=== PATIENT | male | born 1965 | race Caucasian/White ===

== ENCOUNTER 2023-03-22 09:18 | Outpatient (OUT) | payer BC, MEDICARE, SELFPAY ==
[2023-03-22 11:12] LABS: Alanine Aminotransferase 48 U/L (16-63); Albumin Globulin Ratio 1.2; Albumin Level 4.3 g/dL (3.4-5.0); Alkaline Phosphatase 112 U/L (46-116); Anion Gap 12.7; Aspartate Amino Transferase 37 U/L (15-37); BUN Creatinine Ratio 17.6; Bilirubin Total 0.9 mg/dL (0.2-1.0); Calcium 9.2 mg/dL (8.5-10.1); Carbon Dioxide 27.7 mmol/L (21.0-32.0); Chloride 100 mmol/L (98-107); Chol HDL Ratio 3.7; Cholesterol 104 mg/dL (<=200); Estimated Average Glucose 235 mg/dL; Estimated GFR (African America >60 (>=60); Estimated GFR (Non-African Ame >60 (>=60); Globulin 3.7 g/dL; Glucose 272 mg/dL (74-106); Glycohemoglobin A1C 9.8 % (4.5-6.2); HDL Cholesterol 28 mg/dL (40-60); Potassium 4.4 mmol/L (3.5-5.1); Sodium 136 mmol/L (136-145); Thyroid Stimulating Hormone 2.757 uIU/mL (0.358-3.740); Triglycerides 185 mg/dL (<=150)
== END 2023-03-22 09:19 | disposition home or self-care (01) ==
PROVIDERS: PCP Family Medicine; Visit Provider Family Medicine
DX: E11.9 Type 2 diabetes mellitus without complications (principal)
CPT/HCPCS: 36415; 80053; 80061; 83036; 84443

== ENCOUNTER 2023-08-28 13:42 | Outpatient (OUT) | payer BC, MEDICARE, SELFPAY ==
[2023-08-28 15:10] LABS: Estimated Average Glucose 214 mg/dL; Glycohemoglobin A1C 9.1 % (4.5-6.2)
== END 2023-08-28 13:43 | disposition home or self-care (01) ==
LOC: LAB 13:43
PROVIDERS: PCP Family Medicine; Visit Provider Family Medicine
DX: E11.9 Type 2 diabetes mellitus without complications (principal)
CPT/HCPCS: 36415; 83036

== ENCOUNTER 2023-12-11 09:19 | Outpatient (OUT) | payer BC, MEDICARE, SELFPAY ==
[2023-12-11 09:53] LABS: Basophils Percent Auto 0.4 % (0.2-2.0); Eosinophils Absolute Auto 0.2 10^3/uL (0.0-0.7); Eosinophils Percent Auto 3.4 % (0.9-7.0); Hematocrit 39.8 % (42.0-54.0); Hemoglobin 13.4 g/dL (14.0-18.0); Immature Granulocytes Abs Auto 0.01 10^3/uL (0.00-0.03); Immature Granulocytes Pct Auto 0.1 % (0.0-0.5); Lymphocytes Absolute Auto 1.7 10^3/uL (1.2-3.8); Lymphocytes Percent Auto 24.9 % (20.5-60.0); Mean Corpuscular HGB Conc 33.7 g/dL (29.9-35.2); Mean Corpuscular Hemoglobin 29.9 pg (25.9-34.0); Mean Corpuscular Volume 88.8 fL (80.0-94.0); Mean Platelet Volume 9.5 fL (9.5-13.5); Monocytes Absolute Auto 0.7 10^3/uL (0.3-0.8); Neutrophils Absolute Auto 4.1 10^3/uL (1.4-6.5); Neutrophils Percent Auto 61.2 % (43.0-75.0); Platelet Count 171 10^3/uL (150-450); Red Blood Count 4.48 10^6/uL (4.70-6.10); Red Cell Distribution Width 11.9 % (11.0-15.0); White Blood Count 6.7 10^3/uL (4.0-11.0)
[2023-12-11 10:43] LABS: Estimated Average Glucose 206 mg/dL; Glycohemoglobin A1C 8.8 % (4.5-6.2)
[2023-12-11 11:13] LABS: Alanine Aminotransferase 42 U/L (16-63); Albumin Globulin Ratio 0.9; Albumin Level 3.8 g/dL (3.4-5.0); Alkaline Phosphatase 105 U/L (46-116); Anion Gap 13.1; Aspartate Amino Transferase 30 U/L (15-37); BUN Creatinine Ratio 16.9; Calcium 9.3 mg/dL (8.5-10.1); Carbon Dioxide 26.9 mmol/L (21.0-32.0); Chloride 100 mmol/L (98-107); Estimated GFR (African America >60 (>=60); Estimated GFR (Non-African Ame >60 (>=60); Globulin 4.1 g/dL; Glucose 202 mg/dL (74-106); Sodium 136 mmol/L (136-145); TSH W/ REFLEX FT4 3.757 uIU/mL (0.358-3.740); Total Protein 7.9 g/dL (6.4-8.2)
[2023-12-11 13:22] LABS: Free T4 0.82 ng/dL (0.76-1.46)
== END 2023-12-11 09:20 | disposition home or self-care (01) ==
LOC: LAB 09:22
PROVIDERS: PCP Family Medicine; Visit Provider Family Medicine
DX: E78.5 Hyperlipidemia, unspecified (principal); E11.9 Type 2 diabetes mellitus without complications
CPT/HCPCS: 36415; 80053; 83036; 84439; 84443; 85025

== ENCOUNTER 2024-03-24 09:47 | Outpatient (OUT) | payer BC, MEDICARE, SELFPAY ==
--- NOTE | 2024-03-24 09:58 | XR_ITS ---
The [address] [address] Patient Name: FRIDA NICOLE MRN: [id number] date: 1965 Sex: M Assigned Patient Location: [facility] Current Patient Location: Accession/Order Number: [id number] Exam Date: 03/24/2024 10:00 Report Date: 03/26/2024 04:40 At the request of: SHONA RAHMAN Procedure: XR cervical spine 2-3V EXAMINATION: XR cervical spine 2-3V HISTORY: Neck Pain M54.2 COMPARISON: No relevant comparison available. FINDINGS: BONES: No fracture spondylolisthesis. Mild degenerative facet arthropathy. DISC SPACES: Multilevel mild narrowing. Moderate-marked narrowing C5-C6 with large posterior disc osteophyte complex. Moderate narrowing C6-C7. PARASPINOUS: Negative. No paraspinous abnormality is seen. OTHER: Negative. XR/XR cervical spine 2-3V IMPRESSION: 1. Multilevel degenerative changes, marked at C5-C6, likely resulting in central canal and foraminal stenosis. Electronically authenticated by: STEPHAN DOMNIGUEZ Date: 03/26/2024 04:40
--- OUTSIDE RECORDS SUMMARY | 2024-03-24 10:10 | XMS_ITS | CCD ---
Author Organization [facility] Care Team Providers Care Roller Picker Name Role Phone VERONICA UGARTE Referring Unavailable ELKAMBERGY, HUSSAM Primary Care Unavailable MISCDR CARLSON Primary Care Unavailable SHAMMO, JUDITH Attending Unavailable SHAMMO, JUDITH Consulting Unavailable SHAMMO, JUDITH Admitting Unavailable FÁTIMA FLORES Attending Unavailable SWETHA BLOOM Referring Unavailable SWETHA BLOOM Primary Care Unavailable Problems Active Problems Problem Classification Problem Date Documented Date Episodic/Chronic Coronary atherosclerosis and other heart disease (2 sources) Atherosclerotic heart disease of [place] coronary artery with other forms of angina pectoris; Translations: [Ischemic cardiomyopathy] Onset: 12-19-2018 Chronic Coronary atherosclerosis and other heart disease (1 source) Coronary angioplasty status; Translations: [Coronary angioplasty status] Onset: 12-19-2018 Episodic Other screening for suspected conditions (not mental disorders or infectious disease) (1 source) Encounter for screening for malignant neoplasm of colon; Translations: [Encounter for screening for malignant neoplasm of colon] Onset: 02-06-2024 Episodic Unclassified (3 sources) CONTACT W/AND (SUSP) EXPOS COVID-19; Translations: [CONTACT W/AND (SUSP) EXPOS COVID-19] Onset: 10-22-2022 Unclassified (1 source) Colon Cancer Screening Onset: 02-06-2024 Viral infection (1 source) Other viral agents as the cause of diseases classified elsewhere; Translations: [OTH VIRAL AGENTS CAUS DZ CLASS ELSW] Onset: 10-22-2022 Episodic Past or Other Problems Problem Classification Problem Date Documented Da te Episodic/Chronic Unclassified (1 source) CONTACT W/AND (SUSP) EXPOS COVID-19; Translations: [CONTACT W/AND (SUSP) EXPOS COVID-19] Onset: 10-12-2022 Results Test Name Value Interpretation Reference Range Facil ity RESPIRATORY PANEL PLUSon Adenovirus Not detected Normal NOT DETECTED [facility] Comment on above: Performed By: #### R SPLUS #### [facility] [address] [place] [address] Dr. Regino Michelle. Parapertusis Not detected Normal NOT DETECTED The [facility] Comment on above: Performed By: #### R SPLUS #### [facility] [address] [place] [address] Dr. Regino Michelle. Pertussis Not detected Normal NOT DETECTED The [facility] Comment on above: Performed By: #### R SPLUS #### [facility] [address] [place] [address] Dr. Regino Catherine Chlamydia Pneumoniae Not detected Normal NOT DETECTED [facility] Comment on above: Performed By: #### R SPLUS #### [facility] [address] [place] [address] Dr. Regino Catherine Coronavirus 229E Not detected Normal NOT DETECTED [facility] Comment on above: Performed By: #### R SPLUS #### [facility] [address] [place] [address] Dr. Regino Catherine Coronavirus HKU1 Detected Abnormal NOT DETECTED The [facility] Comment on above: Performed By: #### R SPLUS #### [facility] [address] [place] [address] Dr. Regino Catherine Coronavirus NL63 Not detected Normal NOT DETECTED The [facility] Comment on above: Performed By: #### R SPLUS #### [facility] [address] [place] [address] Dr. Regino Catherine Coronavirus OC43 Not detected Normal NOT DETECTED [facility] Comment on above: Performed By: #### R SPLUS #### [facility] [address] [place] [address] Dr. Regino Catherine Influenza A H1 Not detected Normal NOT DETECTED The [facility] Comment on above: Performed By: #### R SPLUS #### [facility] [address] [place] [address] Dr. Regino Catherine Influenza A H1 2009 Not detected Normal NOT DETECTED [facility] Comment on above: Performed By: #### R SPLUS #### [facility] [address] [place], [place] [id number] Dr. Regino Catherine Influenza A H3 Not detected Normal NOT DETECTED The [facility] Comment on above: Performed By: #### R SPLUS #### [facility] [address] [place] [address] Dr. Regino Catherine Influenza B Not detected Normal NOT DETECTED [facility] Comment on above: Performed By: #### R SPLUS #### [facility] [address] [place] [address] Dr. Regino Catherine Metapneumovirus Not detected Normal NOT DETECTED The [facility] Comment on above: Performed By: #### R SPLUS #### [facility] [address] [place] [address] Dr. Regino Catherine Mycoplas. Pneumoniae Not detected Normal NOT DETECTED The [facility] Comment on above: Performed By: #### R SPLUS #### [facility] [address] [place] [address] Dr. Regino Catherine Parainfluenza 1 Not detected Normal NOT DETECTED The [facility] Comment on above: Performed By: #### R SPLUS #### [facility] [address] [place] [address] Dr. Regino Catherine Parainfluenza 2 Not detected Normal NOT DETECTED The [facility] Comment on above: Performed By: #### R SPLUS #### [facility] [address] [place] [address] Dr. Regino Catherine Parainfluenza 3 Not detected Normal NOT DETECTED [facility] Comment on above: Performed By: #### R SPLUS #### [facility] [address] [place] [address] Dr. Regino Catherine Parainfluenza 4 Not detected Normal NOT DETECTED [facility] Comment on above: Performed By: #### R SPLUS #### [facility] [address] [place] [address] Dr. Regino Catherine Rhino/Enterovirus Not detected Normal NOT DETECTED The [facility] Comment on above: Performed By: #### R SPLUS #### [facility] [address] [place] [address] Dr. Regino Catherine RP2 Header 1 RESPIRATORY PANEL: VIRUSES Normal The [facility] Comment on above: Performed By: #### R SPLUS #### [facility] [address] [place] [address] Dr. Regino Catherine RP2 Header 2 RESPIRATORY PANEL: BACTERIA Normal [facility] Comment on above: Performed By: #### R SPLUS #### [facility] [address] [place] [address] Dr. Regino Catherine RSV Not detected Normal NOT DETECTED [facility] Comment on above: Performed By: #### R SPLUS #### [facility] [address] [address] [address] Regino Catherine SARS-CoV-2 (COVID-19) RNA DUC+probe Ql (Unsp spec) Not detected Normal NOT DETECTED [facility] Comment on above: Performed By: #### R SPLUS #### [facility] [address] [place] [address] Dr. Regino Catherine Platelet Counton 12-19-2018 Platelets #/vol (Bld) 177 10*3/uL Normal 138-453 [facility] Comment on above: Performed By: #### P LT #### [facility] [address] [place], [place] [address] [facility] Cardiovascular: Amador Casiano MD Encounters Encounter Date Encounter Type Care Provider Facility Start: 02-06-2024 End: 02-06-2024 ambulatory [facility] Natalee FLORES [facility] Start: 10-12-2022 End: 10-12-[address] DOCTOR POSTC Facility:[facility]1 Start: 12-19-2018 End: 12-20-2018 Patient encounter procedure TARIF A SHANEL [facility] Procedures Date Procedure Procedure Detail Performing Clinician Start: 12-20-2018 DAILY WEIGHTS TARIF ELIJAH AAN Start: 12-20-2018 INTAKE AND OUTPUT TARIF SHANEL Start: 12-20-2018 DIET NPO, SPECIFIED TIME TARIF SHANEL Start: 12-19-2018 Ecg routine ecg w/le ast 12 lds w/i&r TARIF SHANEL Start: 12-19-2018 BEDREST TARIF NILSON AN Start: 12-19-2018 FULL CODE VERONICA ROCHA Start: 12-19-2018 INITIATE OXYGEN THER APY PROTOCOL VERONICA UGARTE Start: 12-19-2018 INTAKE AND OUTPUT VERONICA UGARTE Start: 12-19-2018 IP CONSULT TO SOCIAL WORK VERONICA UGARTE Start: 12-19-2018 NEURO/VASCULAR CHECKS T FEDERICO UGARTE Start: 12-19-2018 NURSING COMMUNICATION T FEDERICO UGARTE Start: 12-19-2018 PUNCTURE SITE CARE JOCELYNE UGARTE Start: 12-19-2018 TELEMETRY MONITORING TA NEGAR UGARTE Start: 12-19-2018 TOBACCO CESSATION EDUCATION VERONICA UGARTE Start: 12-19-2018 VITAL SIGNS VERONICA ROCHA Start: 12-19-2018 SQUAD LEADER REPORT VERONICA RICHARDSON Start: 12-19-2018 DISCHARGE PATIENT VERONICA UGARTE Start: 12-19-2018 ACTIVATED CLOTTING TIME VERONICA UGARTE Start: 12-19-2018 R & l hrt cath w/njx l ventriculog img s&i VERONICA UGARTE Start: 12-19-2018 Blood count platelet automated VERONICA UGARTE Start: 12-19-2018 Blood count hemoglobin VERONICA UGARTE Start: 12-19-2018 Chloride other source T FEDERICO UGARTE Start: 12-19-2018 CREATININE W/GFR POI NT OF CARE VERONICA UGARTE Start: 12-19-2018 Gluc bld gluc mntr d ev cleared fda spec home use VERONICA UGARTE Start: 12-19-2018 Potassium serum plas ma/whole blood VERONICA UGARTE Start: 12-19-2018 Sodium serum plasma or whole blood VERONICA UGARTE Start: 12-19-2018 INITIATE OXYGEN THER APY PROTOCOL VERONICA UGARTE Start: 12-19-2018 POC CHEMISTRY (NA,K,ICA,GLU,CALC HCT/HGB,LACTATE,CREA,CL) VERONICA UGARTE Start: 12-19-2018 VERIFY INFORMED CONSENT VERONICA UGARTE Payers Date Payer Category Payer Medicare [id number] 1965 Unknown [id number] 1965 Unknown [id number] 1965 Unknown [id number] 1957 Medicare [id number] 1957 Unknown [id number] Summary Purpose Family History No Family History Records FoundNo Family History Records FoundNo Family History Records Found Advance Directives No Advanced Directives Records FoundNo Advanced Directives Records FoundNo Advanced Directives Records Found Additional Source Comments (unrecognized sect ion and content) No Status Records FoundNo Status Records FoundNo Status Records Found INFORMATION SOURCE (unrecogn ized section and content) DATE CREATED AUTHOR 12/23/2018 [facility] DATE CREATED AUTHOR AUTHOR'S ORGANIZ ATION 11/13/2022 [facility] DATE CREATED AUTHOR AUTHOR'S ORGANIZ ATION 02/07/2024 [facility] FOR RECORDS PERTAINING TO PATIENTS WHO ARE OR HAVE BEEN ENROLLED IN A CHEMICAL DEPENDENCY/SUBSTANCEABUSE PROGRAM, SOME INFORMATION MAY BE OMITTED. This clinical summary was aggregated from multiple sources. Caution should be exercised in using it in the provision of clinical care. This summary normalizes information from multiple sources, and as a consequence, information in this document may materially change the coding, format and clinical context of patient data. In addition, data may be omitted in some cases. CLINICAL DECISIONS SHOULD BE BASED ON THE PRIMARY CLINICAL RECORDS. [facility] [employer] [facility]. provides no warranty or guarantee of the accuracy or completeness of information in this document.
== END 2024-03-24 09:48 | disposition home or self-care (01) ==
LOC: RAD 09:51
PROVIDERS: PCP Family Medicine; Visit Provider Nurse Practitioner
DX: M54.2 Cervicalgia (principal)
CPT/HCPCS: 72040

== ENCOUNTER 2025-02-03 10:42 | Outpatient (OUT) | payer BC, MEDICARE, SELFPAY ==
[2025-02-03 11:08] LABS: Hematocrit 38.5 % (42.0-54.0); Mean Corpuscular HGB Conc 36.4 g/dL (29.9-35.2); Mean Corpuscular Hemoglobin 31.4 pg (25.9-34.0); Mean Corpuscular Volume 86.3 fL (80.0-94.0); Mean Platelet Volume 9.4 fL (9.5-13.5); Platelet Count 187 10^3/uL (150-450); Red Blood Count 4.46 10^6/uL (4.70-6.10); Red Cell Distribution Width 11.8 % (11.0-15.0)
[2025-02-03 11:26] LABS: Alanine Aminotransferase 44 U/L (16-63); Albumin Globulin Ratio 1.1; Alkaline Phosphatase 107 U/L (46-116); Anion Gap 13.7; Aspartate Amino Transferase 26 U/L (15-37); BUN Creatinine Ratio 21.2; Bilirubin Total 0.8 mg/dL (0.2-1.0); Calcium 9.2 mg/dL (8.5-10.1); Carbon Dioxide 27.5 mmol/L (21.0-32.0); Chloride 100 mmol/L (98-107); Chol HDL Ratio 3.2; Cholesterol 104 mg/dL (<=200); Estimated GFR (African America >60 (>=60 mL/min/1.73m^2); Estimated GFR (Non-African Ame >60 (>=60 mL/min/1.73m^2); Globulin 3.6 g/dL; Glucose 248 mg/dL (74-106); HDL Cholesterol 32 mg/dL (40-60); Potassium 4.2 mmol/L (3.5-5.1); Sodium 137 mmol/L (136-145); Total Protein 7.6 g/dL (6.4-8.2); Triglycerides 129 mg/dL (<=150); VLDL CHOLESTEROL 25.8 mg/dL
== END 2025-02-03 10:43 | disposition home or self-care (01) ==
LOC: LAB 10:47
PROVIDERS: PCP Nurse Practitioner; Visit Provider Nurse Practitioner
DX: E11.9 Type 2 diabetes mellitus without complications (principal)
CPT/HCPCS: 36415; 80053; 80061; 85027

== ENCOUNTER 2025-07-26 08:36 | Outpatient (OUT) | payer BC, MEDICARE, SELFPAY ==
--- OUTSIDE RECORDS SUMMARY | 2024-06-22 05:00 | XMS_ITS ---
Author Organization [facility] vices Address [address] [place], [place] [id number] Care Team Providers Care Can Reforming Machine Operator Name Role Phone Joann Slaughter Primary Care Provider [phone] [phone] REASON FOR VISIT 3 mo DM and HLD Social History Sex Assigned At : Social History Observation Description Sex Assigned At Male Encounters Encounter Location Date Provider Diagnosis [place] [address] [place] [phone] 06/22 Shelly Ward Plan Of Treatment Next Appt Details Provider Name:Joann kaye, 10/25/2025 08:00:00 AM, [address] [place], [place], [phone], Progress Notes * Grant NICOLE IIDOB:[birth year] (59 yo M)Acc No.[id number]:06/22/2024 Medical Note Patient: Miguel Angel Grant hunt II :?Shelly WardDOB:1965???Age:58 Y???Sex:Male Date:4Phone:[phone]:[address] [place] [phone]:Joann Slaughter Subjective: * Chief Complaints: * 3 mo DM and HLD * Electronic signature of VERN Fitzgerald on 07/26/2025 at 08:41 AM ESTSign off status: Pending * Provider: Bradford Ward Date: 1 Generated for Printing/Faxing/eTransmitting on:?07/26/2025 08:41 AM EST
--- OUTSIDE RECORDS SUMMARY | 2025-07-20 03:45 | XMS_ITS ---
Author Organization [facility] vices Address [address] [place], [place] [id number] Care Team Providers Care Certified Caregiver Name Role Phone Joann Slaughter Primary Care Provider REASON FOR VISIT 3m htn, dm Social History Sex Assigned At : Social History Observation Description Sex Assigned At Male Encounters Encounter Location Date Provider Diagnosis East [address] [place] [phone] 07/20/2025 Joann Slaughter Plan Of Treatment Next Appt Details Provider Name:Joann kaye, 10/25/2025 08:00:00 AM, [address] [place], [place], [phone], Progress Notes * Grant NICOLE IIDOB:[birth year] (59 yo M)Acc No.[id number]:07/20/2025 Medical Note Patient: Miguel Angel Grant hunt II :?Joann Slaughter APRN, FNP-CDOB:1965???Age: 59 Y???Sex:MaleDate:07/20/2025Phone:[phone]:[address] [place] [phone] Subjective: * Chief Complaints: * 3 m htn, dm Billing Information: * Procedure Codes: * Electronic signature of MATTHEW Lugo on 07/26/2025 at 08:40 AM EST Sign off status: Pending * Provider: Natalee Slaughter APRN, FNP-Paul Date: 09/19/2024 Generated for Printing/Faxing/eTransmitting on:?07/26/2025 08:40 AM EST
--- OUTSIDE RECORDS SUMMARY | 2025-07-26 02:15 | XMS_ITS ---
Author Organization Formerly [facility], [facility] vices Address [address] [place], [place] [id number] Care Team Providers Care Print Room Worker Name Role Phone Kasandra Joann Primary Care Provider Allergies No Known Allergies Results Component Value Reference Range Notes POCT A1C Reviewed date:07/26/2025 07:28:28 AM Interpretation: Performing Lab: Notes/Report: Result 5.5 0-5.6 % REASON FOR VISIT 3m HTN/DM Medications Medication SIG (Take, Route, Frequency, Duration) Notes Start Date End Date Status FLUoxetine HCl 20 MG Capsule 1 capsule Orally On ce a day; Duration: 90 days ActiveClopidogrel Bisulfate 75 MG Tablet1 tablet Orally Once a day; Duration: 90 daysActiveCarvedilol 25 MG Tablet1 tablet with food Orally Twice a day; Duration: 90 daysActiveDigoxin 125 mcg TabletTAKE ONE TABLET BY MOUTH DAILY Orally Once a day; Duration: 90 daysActiveamLODIPine Besylate 5 MG Tablet1 tablet Orally Once a day; Duration: 90 daysActiveRosuvastatin Calcium 20 MG TabletTAKE 1 TABLET BY MOUTH EVERY NIGHT AT BEDTIMEActiveOzempic (0.25 or 0.5 MG/DOSE) 2 MG/3ML Solution Pen-injector0.5mg Subcutaneous weekly; Duration: 90 days5ActiveLisinopril 20 MG TabletTAKE 1 TABLET BY MOUTH DAILY Orally Once a day; Duration: 90 daysActivetiZANidine HCl 4 MG Tablet1 tablet at bedtime as needed Orally nightly; Duration: 30 daysActiveEzetimibe 10 MG Tablet1 tablet Oral Once a dayActiveNitroglycerin 0.4 MG Tablet Sublingualas directed Sublingual as neededActiveAspirin 81 81 MG Tablet Chewable1 tablet Orally Once a dayActiveColcrys 0.6 MG Tablet2 tabs Orally as neededActivemetFORMIN HCl 1000 MG TabletTAKE 1 TABLET BY MOUTH 2 TIMES A DAY WITH A MEAL Orally Once a day; Duration: 90 daysActiveGabapentin 400 MG Capsule2 capsule Oral TWICE DAILY; Duration: 90 days1 in the afternoon and 2 in the evening (3 a day)Active Allopurinol 300 MG TabletTAKE 1 TABLET BY MOUTH DAILY Orally Once a day; Duration: 90 daysActive Social History Sex Assigned At : Social History Observation Description Sex Assigned At Male Social History Drugs/Alcohol/Caffeine:Social InfoQuestionAnswerNotesCAGE-AID Questionnaire (2018 Edition)Have you ever felt that you ought to cut down on your drinking or drug use?NoHave people annoyed you by criticizing your drinking or drug use?No Have you ever felt bad or guilty about your drinking or drug use?NoHave you ever had a drink or used drugs first thing in the morning to steady your nerves or to get rid of a hangover?NoCAGE-AID Wpvuc3FpzqmwqcpoxenmTsajrfuc Vital Signs Temperature 98.2 degrees Fahrenheit 07/26/20 25 Blood pressure systolic 133 mm Hg 07/26/20 25 Blood pressure diastolic 85 mm Hg 025 Heart Rate 91 /min 07/26/2025 Respiratory Rate 16 /min 07/26/2025 Height 66.00 in 07/26/2025 Weight 174.4 lbs 07/26/2025 BMI 28.15 kg/m2 07/26/2025 Oximetry 97 % 07/26/2025 Height-cm 167.64 cm 07/26/2025 Weight-kg 79.11 kg 07/26/2025 .Daisy Rice 07:22:12 AM EST > Encounters Encounter Location Date Provider Diagnosis [address] [id number] 07/26/2025 Joann Slaughter Type 2 diabetes me llitus without complication, without long-term current use of insulin E11.9 ; HTN (hypertension), benign I10 ; Screening for thyroid disorder Z13.29 ; Medication refill Z76.0 and Screening for colorectal cancer Z12.11 Assessments Encounter Date Diagnosis (ICD Code) Assessment Notes Treatment Notes Treatment Clinical Notes Section Notes 07/26/2025 Type 2 diabetes albino itus without complication, without long-term current use of insulin (ICD-10 - E11.9) Diabetes Stable. Attempt to wean metformin. Start to take 1000mg in the morning then only take 500mg at night Encouraged healthy diet and exercise if able. Recommendations made to continue monitoring home blood sugars if not diet-controlled F/U 3 months & PRN 07/26/2025HTN (hypertension), benign (ICD-10 - I10) Hypertension is stable at this time. Continue current medications. Encouraged healthy diet and exercise. F/U 3 months & PRN 07/26/2025Screening for thyroid disorder (ICD-10 - Z13.29)07/26/2025Medication refill (ICD-10 - Z76.0)07/26/2025Screening for colorectal cancer (ICD-10 - Z12.11) Plan Of Treatment Medication Medication Name Sig Start Date Stop Date Notes Clopidogrel Bisulfate 75 MG Tablet 1 tab let Orally Once a day; Duration: 90 days Carvedilol 25 MG Tablet1 tablet with food Orally Twice a day; Duration: 90 days amLODIPine Besylate 5 MG Tablet1 tablet Orally Once a day; Duration: 90 days tiZANidine HCl 4 MG Tablet1 tablet at bedtime as needed Orally nightly; Duration: 30 daysTreatment Notes Assessment Notes Type 2 diabetes mellitus wit hout complication, without long-term current use of insulin Diabetes Stable. Attempt to wean metformin. Start to take 1000mg in the morning then only take 500mg at night Encouraged healthy diet and exercise if able. Recommendations made to continue monitoring home blood sugars if not diet-controlled F/U 3 months & PRN HTN (hypertension), benign Hypertension is stable at this time. Continue current medications. Encouraged healthy diet and exercise. F/U 3 months & PRN Pending Test Test Name Order Date Cologuard 07/26/2025 LIPID PANEL WITH REFLEX TO DIRECT LDL TSH + FREE T4 PROFILE 07/26/2025 COMPREHENSIVE METABOLIC PANEL WITH GFR 1 09/26/2024 Next Appt Details Follow Up: 3 Months, Reason: dm Provider Name:Joann kaye, 10/25/2025 08:00:00 AM, [address], [place], [place], [phone], History and Physical Notes * Examination CategorySub-CategoryDetailNotesCategory NotesGeneral Examination General appearance: alert, pleasant, well-nourished and in no acute distress. Head: normocephalic, atraumatic. Eyes: pupils equal, round, reactive to light. Heart: regular rate and rhythm without murmurs, gallops, clicks or rubs. Lungs: clear to auscultation bilaterally, with good air movement and no rales, rhonchi or wheezes. Psych: alert and oriented x 3, cooperative with exam, maintains good eye contact. Skin: No rashes. CQM ExceptionsCurrently taking Aspirin:Aspirin Use:: Yes Progress Notes * Grant NICOLE IIDOB:[birth year] (59 yo M)Acc No.[id number]:07/26/2025 Medical Note Patient: Miguel Angel hunt Grant Amezquita II :?Joann RahmanmanTENA, RN ONCOLOGY-CDOB:1965???Age: 59 Y???Sex:MaleDate:07/26/2025Phone:[phone]:[address] [place] [id number] Subjective: * Chief Complaints: * 3 m HTN/DM * HPI: ???Interim History:?The patient is a 59-year-old male?with a history of hypertension (HTN), here for a follow-up visit. The patient reports no new symptoms. The patient has been taking digoxin, cavedilol, amlodipine, and lisinopril?as prescribed, with adherence to the medication regimen. Recent home blood pressure readings have been controlled. Last visit we tried to decrease lisinopril to 10 but patients BP began to elevate so we resumed 20mg. Pt Denies symptoms of chest pain, shortness of breath, palpitations. Pt has no additional concerns today. . The patient has a history of type 2 diabetes mellitus, here for a follow-up visit. The patient reports no new symptoms. The patient is currently taking metformin and ozempic and has been adherent to the prescribed regimen. Attempted to decrease ozempic to .25mg last visit but patient started to over eat again so the dose was increased. Last A1c was 6.6, which is controlled. The patient does not check blood sugars athome The patient has made some changes to their diet and exercise routine since the last visit. The patient denies significant weight changes. The patient has no new complications, such as retinopathy, neuropathy, kidney issues, etc. Pt last seen eye doctor less than a year and last foot exam was. * ROS: ???Positive and negative as described above in the HPI. * Medical History: Allergic Rhinitis Arrhythmia, prison Carpal Tunnel Syndrome Congestive heart failure COPD Diabetes mellitus, type II, Diverticulosis Gastroesophageal Reflux Disease Gout Hypercholesterolemia Hypertension Ischemic cardiomyopathy Type 2 diabetes mellitus with hyperglycemia, without long-term current use of insulin Medical History Verified? * Surgical History: Defibrillator Implant, COMMENTS: with pacemaker ? lung biopsy ? Cardiac stent-5 ? Tonsillectomy and adenoidectomy ? Surgical History verified.? * Hospitalization/Major Diagno stic Procedure: Denies Past Hospitalization.? Hospitalization Verified.? * Family History: F ather: , CHF, diagnosed with Diabetes. M other: , CHF. P aternal Grand Father: , CHF. P aternal Grand Mother: , CHF. M aternal Grand Father: , CHF. M aternal Grand Mother: , CHF. B rother: alive. S ister: , CHF. 1 brother(s) , 1 sister(s) . . F amily History Verified.. * Social History: ???Drugs/Alcohol/Caffeine:?CAGE-AID Questionnaire (2018 Edition)?Have you ever felt that you ought to cut downon your drinking or drug use??No ?Have people annoyed you by criticizing your drinking or drug use??No ?Have you ever felt bad or guilty about your drinking or drug use??No ?Have you ever had a drink or used drugs firstthing in the morning to steady your nerves or to get rid of a hangover??No ?CAGE-AID Score?0 ?Interpretation?Negative ???Social History Verified. * Medications: T akingFLUoxetine HCl 20 MG Capsule 1 capsule Orally Once a day Digoxin 125 mcg Tablet TAKE ONE TABLET BY MOUTH DAILY Orally Once a day Allopurinol 300 MG Tablet TAKE 1 TABLET BY MOUTH DAILY Orally Once a day metFORMIN HCl 1000 MG Tablet TAKE 1 TABLET BY MOUTH 2 TIMES A DAY WITH A MEAL Orally Once a day Gabapentin 400 MG Capsule 2 capsule Oral TWICE DAILY , Notes to Pharmacist: 1 in the afternoon and 2 in the evening (3 a day)Carvedilol 25 MG Tablet 1 tablet with food Orally Twice a day Nitroglycerin 0.4 MG Tablet Sublingual as directed Sublingual as needed Aspirin 81 81 MG Tablet Chewable 1 tablet Orally Once a day Colcrys 0.6 MG Tablet 2 tabs Orally as needed amLODIPine Besylate 5 MG Tablet TAKE ONE TABLET BY MOUTH EVERY EVENING Clopidogrel Bisulfate 75 MG Tablet TAKE 1 TABLET BY MOUTH DAILY Rosuvastatin Calcium 20 MG Tablet TAKE 1 TABLET BY MOUTH EVERY NIGHT AT BEDTIME Ezetimibe 10 MG Tablet 1 tablet Oral Once a day tiZANidine HCl 4 MG Tablet 1 tablet at bedtime as needed Orally nightly Ozempic (0.25 or 0.5 MG/DOSE) 2 MG/3ML Solution Pen-injector 0.5mg Subcutaneous weekly Lisinopril 20 MG Tablet TAKE 1 TABLET BY MOUTH DAILY Orally Once a day Medication List reviewed and reconciled with the patientTaking FLUoxetine HCl 20 MG Capsule 1 capsule Orally Once a day Taking Digoxin 125 mcg Tablet TAKE ONE TABLET BY MOUTH DAILY Orally Once a day Taking Allopurinol 300 MG Tablet TAKE 1 TABLET BY MOUTH DAILY Orally Once a day Taking metFORMIN HCl 1000 MG Tablet TAKE 1 TABLET BY MOUTH 2 TIMES A DAY WITH A MEAL Orally Once a day Taking Gabapentin 400 MG Capsule 2 capsule Oral TWICE DAILY , Notes to Pharmacist: 1 in the afternoon and 2 in the evening (3 a day)Taking Carvedilol 25 MG Tablet 1 tablet with food Orally Twice a day Taking Nitroglycerin 0.4 MG Tablet Sublingual as directed Sublingual as needed Taking Aspirin 81 81 MG Tablet Chewable 1 tablet Orally Once a day Taking Colcrys 0.6 MG Tablet 2 tabs Orally as needed Taking amLODIPine Besylate 5 MG Tablet TAKE ONE TABLET BY MOUTH EVERY EVENING Taking Clopidogrel Bisulfate 75 MG Tablet TAKE 1 TABLET BY MOUTH DAILY Taking Rosuvastatin Calcium 20 MG Tablet TAKE 1 TABLET BY MOUTH EVERY NIGHT AT BEDTIME Taking Ezetimibe 10 MG Tablet 1 tablet Oral Once a day Taking tiZANidine HCl 4 MG Tablet 1 tablet at bedtime as needed Orally nightly Taking Ozempic (0.25 or 0.5 MG/DOSE) 2 MG/3ML Solution Pen-injector 0.5mg Subcutaneous weekly Taking Lisinopril 20 MG Tablet TAKE 1 TABLET BY MOUTH DAILY Orally Once a day Medication List reviewed and reconciled with the patient * Allergies: N .K.D.AGingeryesAllergies Verified. Objective: * Vitals: T emp:98.2F, Wt:174.4lbs, Ht: 66.00 in, BMI:28.15Index, BP:133/85mm Hg, HR:91/min, RR:16/min, Pain scale:01-10, Oxygen sat %:97%, Wt-k.11 kg, Ht-cm: 167.64 cm, Body Surface Area: 1.92. . MartinezmassimoDaisy mills 07/26/2025 07:22:12 AM EST >. * Examination: ???CQM Exceptions: ?Currently taking Aspirin:? Aspirin Use:?Yes?General Examination: ???General appearance: alert, pleasant, well-nourished and in no acute distress. Head: normocephalic, atraumatic. Eyes: pupils equal, round, reactive to light. Heart: regular rate and rhythm without murmurs, gallops, clicks or rubs. Lungs: clear to auscultation bilaterally, with good air movement and no rales, rhonchi or wheezes. Psych: alert and oriented x 3, cooperative with exam, maintains good eye contact. Skin: No rashes. Assessment: * Assessment: 1.?Type 2 diabetes mellitus without complication, without long-term current use of insulin - E11.9 (Primary)???2.?HTN (hypertension), benign - I10???3.?Scr eening for thyroid disorder - Z13.29???4.?Medication refill - Z76.0??& #160;5.?Screening for colorectal cancer - Z12.11??? Plan: * Treatment: ?LAB: POCT A1C (Collection Date & Time - 07/26/2025 07:26 AM)* ?ValueReference Range?Result5.50-5.6 - % Notes: Diabetes Stable. Attempt to wean metformin. Start to take 1000mg in the morning then only take 500mg at night Encouraged healthy diet and exercise if able. Recommendations made to continue monitoring home blood sugars if not diet-controlled F/U 3 months & PRN? ??2.?HTN (hypertension), benign?LAB: LIPID PANEL WITH REFLEX TO DIRECT LDL ?LAB: COMPREHENSIVE METABOLIC PANEL WITH GFR Notes: Hypertension is stable at this time. Continue current medications. Encouraged healthy diet and exercise. F/U 3 months & PRN???3.?Screening for thyroid disorder?LAB: TSH + FREE T4 PROFILE4.?Medication refill? Refill tiZANidine HCl Tablet, 4 MG, 1 tablet at bedtime as needed, Orally, nightly, 30 days, 30, Refills 3;?Refill amLODIPine Besylate Tablet, 5 MG, 1 tablet, Orally, Once a day, 90 days, 90 Tablet, Refills 1;?Refill Carvedilol Tablet, 25 MG, 1 tablet with food, Orally, Twice a day, 90 days, 180 Tablet, Refills 1.??5.?Screening for colorectal cancer?LAB: Cologuard6.?Others? Refill Clopidogrel Bisulfate Tablet, 75 MG, 1 tablet, Orally, Once a day, 90 days, 90 Tablet, Refills 1.?? * Procedure Codes: 3 044F DM HG A1C < 62942I HTN SYST BP = 130 - 0280274L HTN DIAST BP = 80-2305784 GLYCATED HEMOGLOBIN TEST, Modifiers: QW * Follow Up: 3 Months (Reason: dm) Billing Information: * Visit Code: 56972 Office Visit Est 30-39 minutes. * Procedure Codes: 3044F DM HG A1C < 7. 3075F HTN SYST BP = 130 - 139. 3079F HTN DIAST BP = 80-89. 84785 GLYCATED HEMOGLOBIN TEST. Modifiers: QW * Sign off status: Completed true * Provider: A bigail Slaughter, CHIEF COMPLIANCE OFFICER, RN ONCOLOGY-C Date: 1 09/26/2024 Generated for Printing/Faxing/eTransmitting on:?07/26/2025 08:41 AM EST
--- OUTSIDE RECORDS SUMMARY | 2025-07-26 08:41 | XMS_ITS | Clinical Summary ---
Author Organization [facility] Address [address], [address] [place] [address] Care Team Providers Care Auto Crane Driver Name Role Phone Shayne Linares MD Primary Care Provider Allergies No known active allergies Medications MedicationSigDispense QuantityRefillsLast FilledStart DateEnd DateStatus tiZANidine (ZANAFLEX) 4 MG tablet Take 1 tablet by mouth dailyActive lisinopril (PRINIVIL;ZESTRIL) 20 MG tablet Take 1 tablet by mouth dailyActive gabapentin (NEURONTIN) 400 MG capsule Take 1 capsule by mouth 3 times daily. 4 caps a day 1am 1lunch 2pmActive polyethylene glycol (GLYCOLAX) powder Take 17 g by mouth dailyActive allopurinol (ZYLOPRIM) 300 MG tablet Take 1 tablet by mouth 2 times dailyActive colchicine 0.6 MG tablet Take 1 tablet by mouth 2 times dailyActive nitroGLYCERIN (NITROSTAT) 0.[address] 1 tablet under the tongue every 5 minutes as needed for Chest pain up to max of 3 total doses. If no relief after 1 dose, call 911.Active aspirin 81 MG tablet Take 1 tablet by mouth daily 90 tablet Active naproxen (NAPROSYN) 500 MG tablet Take 1 tablet by mouth 2 times daily as needed for Pain 60 tablet 12/19/2018Active digoxin (LANOXIN) 125 MCG tablet Indications:Ischemic cardiomyopathyTake 1 tablet by mouth daily 90 tablet 5Active clopidogrel (PLAVIX) 75 MG tablet Indications:Ischemic cardiomyopathyTake 1 tablet by mouth daily 90 tablet 5Active carvedilol (COREG) 25 MG tablet Indications:Ischemic cardiomyopathyTake 1 tablet by mouth 2 times daily (with meals) 180 tablet 5Active rosuvastatin (CRESTOR) 20 MG tablet Indications:Ischemic cardiomyopathyTake 1 tablet by mouth nightly 90 tablet 5Active amLODIPine (NORVASC) 5 MG tablet Indications:Ischemic cardiomyopathyTake 1 tablet by mouth daily 90 tablet 5Active ezetimibe (ZETIA) 10 MG tablet Indications:S/P PTCA (percutaneous transluminal coronary angioplasty)Take 1 tablet by mouth daily 90 tablet 5Active Active Problems ProblemNoted DateDiagnosed DateS/P PTCA (percutaneous transluminal coronary angioplasty)12/19/2018Coronary artery disease of [place] artery of [place] heart with stable angina abbrkgar51/26/2019Ischemic kbbygsnuhdrmwk08/26/2019 Social History Tobacco UseTypesPacks/DayYears UsedDateSmoking Tobacco: NeverSmokeless Tobacco: NeverAlcohol UseStandard Drinks/WeekCommentsYes0 (1 standard drink = 0.6 oz pure alcohol)occassionallySex and Gender InformationValueDate RecordedSex Assigned at BirthNot on fileLegal FfiBpuu1211/12/2013 10:59 AM EDTGender IdentityNot on file Sexual OrientationNot on file Last Filed Vital Signs Vital SignReadingTime TakenCommentsBlood Vacchoxc196/8810/27/2024 9:54 AM EST Urvbg761110/27/2024 9:54 AM WVUKkidhpfknru15.7 ??C (98 ??F)12/19/2018 8:31 AM EDT Respiratory Xklw8933 9:54 AM ESTOxygen Gflvnjyhuy27%10/27/2024 9:54 AM ESTInhaled Oxygen Concentration--Qnxnjs27.9 kg (185 lb)10/27/2024 9:54 AM EST Hvrfuf987.6 cm (5' 4 )10/27/2024 9:54 AM ESTBody Mass Index31.7603 9:54 AM EST Plan of Treatment Health MaintenanceDue DateLast EskwBzbbpyjrZrrkda86/25/1978Depression Screen 1979HIV jqoexa2610/20/1982Hepatitis C dozzfu1710/20/1985DTaP/Tdap/Td vaccine (1 - Tdap)1986Hepatitis B vaccine (1 of 3 - 19+ 3-dose series)1986 Diabetes fiksac0110/20/20025994Nkmhgzblyyj32/25/2013Colorectal Cancer Ceknyz0610/20/2012 FIT/FOBT: Average risk2012Fecal-DNA (Cologuard): Average risk2012 Sigmoidoscopy/CT /25/2013Pneumococcal 50+ years Vaccine (1 of 1 - PCV)2017Shingles vaccine (1 of 2)2017Annual Wellness Visit (Medicare)07/22/2023Flu vaccine (#1)51, 09/19/2023, 08/11/2022, Additional history existsCOVID-19 HcskwyiGdveqlkrs72/30/2024, 09/19/2023, 08/11/2022, Additional history existsHepatitis A vaccineAged OutNo longer eligible based on patient's age to complete this topicHib vaccineAged Out No longer eligible based on patient's age to complete this topicMeningococcal (ACWY) vaccineAged OutNo longer eligible based on patient's age to complete this topicMeningococcal B vaccineAged OutNo longer eligible based on patient's age to complete this topicPolio vaccineAged OutNo longer eligible based on patient's age to complete this topic Insurance [address] [place] [phone] Advance Directives * Full Code (Latest Code Status on File) Date ActivatedDate InactivatedComments12/19/2018 10:03 AM12/20/2018 2:41 AM * Full Code Date ActivatedDate InactivatedComments12/19/2018 8:29 AM12/19/2018 10:03 AM * Full Code Date ActivatedDate InactivatedComments11/09/2014 3:29 PM11/09/2014 8:45 PM * Full Code Date ActivatedDate InactivatedComments11/09/2014 12:08 PM11/09/2014 3:29 PM * Full Code Date ActivatedDate InactivatedComments12/16/2013 10:02 AM12/16/2013 3:29 PM Care Teams Team MemberRelationshipSpecialtyStart DateEnd Date Shayne Linares MD [address] [place] [address] PCP - General12/15/13
--- OUTSIDE RECORDS SUMMARY | 2025-07-26 08:41 | XMS_ITS | Clinical Summary ---
Author Organization [employer] tem Address [id number] [address] [place] [address] Care Team Providers Care Orderly Name Role Phone Adonis De León MD Primary Care Provider [phone] Allergies No known active allergies Medications MedicationSigDispense QuantityRefillsLast FilledStart DateEnd DateStatus nitroglycerin (NITROSTAT) 0.[address] 1 tablet (0.4 mg total) under the tongue every 5 (five) minutes as needed. Place 1 tablet under the tongue every 5 minutes as needed for Chest pain up to max of 3 total doses. If no relief after 1 dose, call [phone].Active FLUoxetine (PROzac) 20 mg capsule Take 1 capsule (20 mg total) by mouth in the evening.Active tiZANidine (ZANAFLEX) 4 mg tablet Take 1 tablet (4 mg total) by mouth nightly.Active ezetimibe (ZETIA) 10 mg tablet Take 1 tablet (10 mg total) by mouth in the morning.12/24/2023ctive lisinopriL (PRINIVIL,ZESTRIL) 20 mg tablet Take 1 tablet (20 mg total) by mouth in the morning.Active amLODIPine (NORVASC) 5 mg tablet Take 1 tablet (5 mg total) by mouth nightly.Active digoxin (LANOXIN) 125 mcg tablet Take 1 tablet (125 mcg total) by mouth in the morning.12/24/2023ctive gabapentin (NEURONTIN) 400 mg capsule Take 1 capsule (400 mg total) by mouth in the morning and 1 capsule (400 mg total) at noon and 1 capsule (400 mg total) in the evening and 1 capsule (400 mg total) before bedtime.Active JARDIANCE 10 mg tablet tablet Take 1 tablet (10 mg total) by mouth in the morning.4Active colchicine (COLCRYS) 0.6 mg tablet Take 1 tablet (0.6 mg total) by mouth. Take 1 tablet by mouth 2 times daily Active allopurinoL (ZYLOPRIM) 300 mg tablet Take 1 tablet (300 mg total) by mouth in the morning and 1 tablet (300 mg total) before bedtime.Active rosuvastatin (CRESTOR) 20 mg tablet Take 1 tablet (20 mg total) by mouth nightly.Active clopidogreL (PLAVIX) 75 mg tablet Take 1 tablet (75 mg total) by mouth in the morning.Active carvediloL (COREG) 25 mg tablet Take 1 tablet (25 mg total) by mouth in the morning and 1 tablet (25 mg total) in the evening. Takewith meals.Active aspirin 81 mg Take 1 tablet (81 mg total) by mouth in the morning.Active metFORMIN (GLUCOPHAGE) 1000 mg tablet Take 1 tablet (1,000 mg total) by mouth in the morning and 1 tablet (1,000 mg total) in the evening. Take with meals.Active sod sulf-pot chloride-mag sulf 1.479-0.188- 0.225 gram tablet Indications:Encounter for screening colonoscopyPlease see instructional sheet given by physicians office. 24 tablet 02/06/2024ctive Active Problems No known active problems Family History Medical HistoryRelationNameCommentsDiabetesFatherPhillip BowlinEarly deathFather Grant OrozcoHeart diseaseFatherPhillip BowlinArthritisMotherJanet Ernesto Clotting disorderMotherJanet BowlinHypertensionMotherJanet BowlinRelationName StatusCommentsFatherPhillip BowlinDeceasedMotherJanet BowlinDeceased Social History Tobacco UseTypesPacks/DayYears UsedDateSmoking Tobacco: NeverSmokeless Tobacco: NeverAlcohol UseStandard Drinks/WeekCommentsNot Currently0 (1 standard drink = 0.6 oz pure alcohol)rarelyChildcareAnswerDate NywwzdreJbigobdexPdgxtfy28/12/2019 EmploymentAnswerDate KypoumjuJtyssnerrbSetygqs08/12/2019Hunger ScreeningAnswer Date RecordedWithin the past 12 months we worried whether our food would run out before we got money to buy more.Never True02/06/2024Food Insecurity - Inability Not on file02/06/2024Sex and Gender InformationValueDate RecordedSex Assigned at ZzpnsExap33/06/2024 5:07 PM EDTLegal PmoUwsr1803/31/2015 11:43 AM EDTGender AvmpwhruYwxq00/06/2024 5:07 PM EDTSexual AbkgeeybufeWsz05/06/2024 5:07 PM EDT Last Filed Vital Signs Vital SignReadingTime TakenCommentsBlood Rphgzijr192/85002/06/2024 10:07 AM EDT Wndsl639202/06/2024 10:07 AM EDTTemperature--Respiratory Rate--Oxygen Saturation-- Inhaled Oxygen Concentration--Cvrylh92.8 kg (184 lb 12.8 oz)02/06/2024 10:07 AM WCWRmrfax788 cm (5' 3 )02/06/2024 10:07 AM EDTBody Mass Index32.7402/06/2024 10:07 AM EDT Plan of Treatment Health MaintenanceDue DateLast DoneCommentsDepression Wvznxkszk02/25/1980 DTaP,Tdap and Td Vaccines (1 - Tdap)1986Zoster (Shingles) Vaccine (1 of 2) 2017Adult BMI Dhdglmcgf16Tobacco Onretgctx58/24/2025 02/17/2024OVID-19 Vaccine ( - 2024- season), 08/11/2022, 08/03/2021, Additional history existsInfluenza Xzwvtbw22/01/217494/, 08/11/2022, 07/23/2020, Additional history exists Medical Devices Not on file Insurance Care Teams Team MemberRelationshipSpecialtyStart DateEnd Date Adonis De León MD [facility] - [facility]
--- OUTSIDE RECORDS SUMMARY | 2025-07-26 08:41 | XMS_ITS | CCD ---
Demographics Address [address] [place] [address] Mobile Phone Preferred Language en Marital Status Islam Affiliation Unknown Race White Ethnic Group Not or Lati no Author Organization [facility] Care Team Providers Care Reverse Logistics Analyst Name Role Phone VERONICA UGARTE Referring Unavailable ELFLAKITA MORFIN Primary Care Unavailable DR ROBYN HUI Primary Care Unavailable JUDITH SAM Attending Unavailable JUDITH SAM Consulting Unavailable JUDITH SAM Admitting Unavailable FÁTIMA FLORES Attending Unavailable SWETHA DE LEÓN Referring Unavailable SWETHA DE LEÓN Primary Care Unavailable Swetha De León MD Primary Care Provider Medications Current Medications MedicationDrug Class(es)DatesSig (Normalized)Sig (Original)Allopurinol (2 sources)Xanthine Oxidase InhibitorStart: 88-90-1525Cnfcsyaizek Active MG PO April 21, 2024 12:00amtake 1 tablet by mouth in the morning, then take 1 tablet by mouth at bedtimeallopurinoL (ZYLOPRIM) 300 mg tablet Take 1 tablet (300 mg total) by mouth in the morning and 1 tablet (300 mg total) before bedtime. ActiveamLODIPine 5 mg oral tablet (2 sources)Dihydropyridine Calcium Channel BlockerStart: 46-48-9494yfac 5 mg by mouth once dailyAmlodipine Active 5 MG PO Daily April 21, 2024 12:00amtake 1 tablet by mouth once dailyamLODIPine (NORVASC) 5 mg tablet Take 1 tablet (5 mg total) by mouth nightly. Activeaspirin 81 mg delayed release oral tablet (2 sources)Platelet Aggregation Inhibitor, Nonsteroidal Anti-inflammatory Drug Start: 68-02-2481tutv 81 mg by mouth once dailyAspirin Active 81 MG PO Daily April 21, 2024 12:00amtake 1 tablet by mouth in the morningaspirin 81 mg Take 1 tablet (81 mg total) by mouth in the morning. Activecarvedilol (2 sources)alpha-Adrenergic Ophelia, beta-Adrenergic BlockerStart: 04-21-2024 Carvedilol Active MG PO April 21, 2024 12:00amtake 1 tablet by mouth in the morning, then take 1 tablet by mouth at mealtimecarvediloL (COREG) 25 mg tablet Take 1 tablet (25 mg total) by mouth in the morning and 1 tablet (25 mg total) in the evening. Take with meals. Activeclopidogrel 75 mg oral tablet (2 sources)P2Y12 Platelet InhibitorStart: 67-63-8966ihas 75 mg by mouth once dailyClopidogrel Active 75 MG PO Daily April 21, 2024 12:00amtake 1 tablet by mouth in the morningclopidogreL (PLAVIX) 75 mg tablet Take 1 tablet (75 mg total) by mouth in the morning. Activecolchicine 0.6 mg oral tablet (2 sources)Start: 88-75-7750hpec 1 tablet by mouth once dailyColchicine (Colcrys) 0.6 mg tablet Active 0.6 MG PO Daily April 21, 2024 12:00am colchicine (COLCRYS) 0.6 mg tablet Take 1 tablet (0.6 mg total) by mouth. Take 1 tablet by mouth 2 times daily Activedigoxin 0.125 mg oral tablet (1 source)Cardiac GlycosideStart: 36-24-3830ycwr 1 tablet by mouth in the morningdigoxin (LANOXIN) 125 mcg tablet Take 1 tablet (125 mcg total) by mouth in the morning. 12/24/2023 Activeempagliflozin 10 mg oral tablet (1 source)Sodium-Glucose Cotransporter 2 InhibitorStart: 32-41-6799ccxk 1 tablet by mouth in the morningJARDIANCE 10 mg tablet tablet Take 1 tablet (10 mg total) by mouth in the morning. 01/16/2024 Activeezetimibe 10 mg oral tablet (2 sources)Dietary Cholesterol Absorption InhibitorStart: 21-44-9903ppsa 1 tablet by mouth once dailyEzetimibe (Zetia) 10 mg tablet Active 10 MG PO Daily April 21, 2024 12:00amStart: 06-32-6387uuzo 1 tablet by mouth in the morning ezetimibe (ZETIA) 10 mg tablet Take 1 tablet (10 mg total) by mouth in the morning. 12/24/2023 ActiveFLUoxetine 20 mg oral capsule (1 source)Serotonin Reuptake Inhibitortake 1 capsule by mouth in the evening FLUoxetine (PROzac) 20 mg capsule Take 1 capsule (20 mg total) by mouth in the evening. Activegabapentin 300 mg oral capsule (2 sources)Anti-epileptic AgentStart: 56-14-6395axzc 300 mg by mouth three times dailyGabapentin Active 300 MG PO Three times daily April 21, 2024 12:00am gabapentin (NEURONTIN) 400 mg capsule Take 1 capsule (400 mg total) by mouth in the morning and 1 capsule (400 mg total) at noon and 1 capsule (400 mg total) in the evening and 1 capsule (400 mg total) before bedtime. Activelisinopril 20 mg oral tablet (2 sources)Angiotensin Converting Enzyme InhibitorStart: 77-03-2633genc 20 mg by mouth once dailyLisinopril Active 20 MG PO Daily April 21, 2024 12:00amtake 1 tablet by mouth in the morninglisinopriL (PRINIVIL,ZESTRIL) 20 mg tablet Take 1 tablet (20 mg total) by mouth in the morning. ActivemetFORMIN hydrochloride 500 mg oral tablet (2 sources)BiguanideStart: 91-18-3645iech 1000 mg by mouth twice dailyMetformin Active 1000 MG PO Twice daily April 21, 2024 12:00amtake 1 tablet by mouth in the morning, then take 1 tablet by mouth at mealtimemetFORMIN (GLUCOPHAGE) 1000 mg tablet Take 1 tablet (1,000 mg total) by mouth in the morning and 1 tablet (1,000 mg total) in the evening. Take with meals. Activenitroglycerin 0.3 mg sublingual tablet (2 sources)Nitrate VasodilatorStart: 39-93-6183Smpkycsfrkgfd Active 0.3 MG SUBLINGUAL Q5M April 21, 2024 12:00am do not exceed 3 doses per episode nitroglycerin (NITROSTAT) 0.[address] 1 tablet (0.4 mg total) under the tongue every 5 (five) minutes as needed. Place 1 tablet under the tongue every 5 minutes as needed for Chest pain upto max of 3 total doses. If no relief after 1 dose, call 911. Activepolyethylene glycol 3350 52977 mg powder for oral solution (1 source)Osmotic LaxativeStart: 57-02-1343Qzktsbicymeu Glycol 3350 (Miralax) 17 gram/dose powder Active 17 GM PO Daily April 21, 2024 12:00amrosuvastatin calcium 20 mg oral tablet (2 sources)HMG-CoA Reductase InhibitorStart: 27-16-9473Oqkvwonhsmun Active MG PO April 21, 2024 12:00amtake 1 tablet by mouth once dailyrosuvastatin (CRESTOR) 20 mg tablet Take 1 tablet (20 mg total) by mouth nightly. Activesod sulf-pot chloride-mag sulf 1.479-0.188- 0.225 gram tablet (1 source)Start: 48-37-5359rcy sulf-pot chloride-mag sulf 1.479-0.188- 0.225 gram tablet Indications: Encounter for screening colonoscopy Please see instructional sheet given by physicians office. 24 tablet 02/06/2024 Active tiZANidine 4 mg oral capsule (2 sources)Central alpha-2 Adrenergic AgonistStart: 47-61-0387dcaa 4 mg by mouth once daily at bedtimeTizanidine Active 4 MG PO Daily at bedtime April 21, 2024 12:00amtake 1 tablet by mouth once dailytiZANidine (ZANAFLEX) 4 mg tablet Take 1 tablet (4 mg total) by mouth nightly. Active Problems Active Problems Problem ClassificationProblemDateDocumented DateEpisodic/ChronicCoronary atherosclerosis and other heart disease (2 sources)Atherosclerotic heart disease of [place] coronary artery with other forms of angina pectoris; Translations: [Ischemic cardiomyopathy]Onset: 70-14-1581JlgwpvtYbpycnzx atherosclerosis and other heart disease (1 source)Coronary angioplasty status; Translations: [Coronary angioplasty status]Onset: 00-86-9474QlyqkiwvLrnnp screening for suspected conditions (not mental disorders or infectious disease) (2 sources)Encounter for screening for malignant neoplasm of colon; Translations: [Patient encounter status]Onset: 740201-80-3473Qvwsydcs Unclassified (3 sources)CONTACT W/AND (SUSP) EXPOS COVID-19; Translations: [CONTACT W/AND (SUSP) EXPOS COVID-19]Onset: 13-35-9681Dxctvztbicxn (1 source)Colon Cancer ScreeningOnset: 96-20-5608Ptitz infection (1 source)Other viral agents as the cause of diseases classified elsewhere; Translations: [OTH VIRAL AGENTS CAUS DZ CLASS ELSW]Onset: 64-08-2337Cmerikby Past or Other Problems Problem ClassificationProblemDateDocumented DateEpisodic/ChronicAbdominal pain (1 source)Finding of sensation of abdomen; Translations: [Unspecified abdominal pain]20-74-1297FkczlbffVvoobskikxbu (1 source)CONTACT W/AND (SUSP) EXPOS COVID-19; Translations: [CONTACT W/AND (SUSP) EXPOS COVID-19]Onset: 10-12-2022 Results Test NameValueInterpretationReference RangeFacilityRESPIRATORY PANEL PLUSon 57-32-8620RcclsnnsmnIly detectedNormalNOT DETECTEDThe [facility] HospitalComment on above:Performed By: #### RSPLUS #### [facility] [address] [place] [address] Dr. Regino Hays ParapertusisNot detectedNormalNOT DETECTEDThe [facility] HospitalComment on above:Performed By: #### RSPLUS #### [facility] [address] [place] [address] Dr. Reigno Hays PertussisNot detectedNormalNOT DETECTEDHigh[facility] Comment on above:Performed By: #### RSPLUS #### [facility] [address] [place] [address] Dr. Regino CatherineChlamydia PneumoniaeNot detectedNormalNOT DETECTEDThe [facility] HospitalComment on above:Performed By: #### RSPLUS #### [facility] [address] [place] [address] Dr. Regino Smithronavirus 229ENot detectedNormalNOT DETECTEDThe [facility] HospitalComment on above:Performed By: #### RSPLUS #### [facility] [address] [place] [address] Dr. Regino Crespoavirus PCD4BkbvcbgeCknikreyNYP DETECTEDHigh[facility] Hospital Comment on above:Performed By: #### RSPLUS #### [facility] [address] [place] [address] Dr. Yilan ChangCoronavirus LQ30Aow detectedNormalNOT DETECTEDThe [facility] HospitalComment on above:Performed By: #### RSPLUS #### [facility] [address] [address] [address] Regino Smithronavirus MK07Hmq detectedNormalNOT DETECTEDThe [facility] HospitalComment on above:Performed By: #### RSPLUS #### [facility] [address] [address] [address] Regino Wilder A H1Not detectedNormalNOT DETECTEDThe [facility] Comment on above:Performed By: #### RSPLUS #### [facility] [address] [address] [address] Regino Albright H1 2009Not detectedNormalNOT DETECTEDThe [facility] HospitalComment on above:Performed By: #### RSPLUS #### [facility] [address] [address] [address] Regino Wilder A H3Not detectedNormalNOT DETECTEDHigh[facility] Comment on above:Performed By: #### RSPLUS #### [facility] [address] [address] [address] Regino Wilder BNot detectedNormalNOT DETECTEDHigh[facility] Comment on above:Performed By: #### RSPLUS #### [facility] [address] [address] [address] Regino EarlapneumovirusNot detectedNormalNOT DETECTEDThe [facility] HospitalComment on above:Performed By: #### RSPLUS #### [facility] [address] [address] [address] Regino Bee. PneumoniaeNot detectedNormalNOT DETECTEDThe [facility] HospitalComment on above:Performed By: #### RSPLUS #### [facility] [address] [address] [address] Regino Panchal 1Not detectedNormalNOT DETECTEDThe [facility] HospitalComment on above:Performed By: #### RSPLUS #### [facility] [address] [address] [address] Regino Panchal 2Not detectedNormalNOT DETECTEDThe [facility] HospitalComment on above:Performed By: #### RSPLUS #### [facility] [address] [place] [address] Dr. Regino Panchal 3Not detectedNormalNOT DETECTEDThe [facility] HospitalComment on above:Performed By: #### RSPLUS #### [facility] [address] [place] [address] Dr. Regino Panchal 4Not detectedNormalNOT DETECTEDThe [facility] HospitalComment on above:Performed By: #### RSPLUS #### [facility] [address] [place] [address] Dr. Regino CatherineRhino/EnterovirusNot detectedNormalNOT DETECTEDThe [facility] HospitalComment on above:Performed By: #### RSPLUS #### [facility] [address] [place] [address] Dr. Regino Meek Header 1RESPIRATORY PANEL: VIRUSESDayton Osteopathic Hospital on above:Performed By: #### RSPLUS #### [facility] [address] [place] [address] Dr. Regino Meek Header 2RESPIRATORY PANEL: BACTERIAMary Rutan HospitalComment on above:Performed By: #### RSPLUS #### [facility] [address] [place] [address] Dr. Regino WoodruffVNot detectedNormalNOT DETECTEDThe [facility] HospitalComment on above:Performed By: #### RSPLUS #### [facility] [address] [place] [address] Dr. Regino Rodriges-CoV-2 (COVID-19) RNA DUC+probe Ql (Unsp spec)Not detected NormalNOT DETECTEDThe [facility] HospitalComment on above:Performed By: #### RSPLUS #### [facility] [address] [place] [address] Dr. Regino CatherinePlatelet Counton 72-64-0443Bzpnrutyt #/vol (Bld)177 10*3/uLNormal 138-453[facility] St. Anne HospitalComment on above:Performed By: #### PLT #### [facility] [address] [place], [place] [id number] Certified Alcohol And Drug Counselor: Amador Casiano MD Vital Signs Date TimeVital SignValuePerforming UsineyosdApesmpmy13-07-1815 10:0400Body .02 cmC[facility]08-27-2024 10:0400Body mass index (BMI) [Ratio]33.1 kg/l7YwkjtimenCleveland Clinic [facility]08-27-2024 10:0400Body qsungc15.82 kgC[facility] Clinic [facility]06-13-2024 10:0400Body rdmzon424 cmFátima Sanchezsammy LUTZN-HOME CARE ASSISTANT Work Phone: [facility]06-13-2024 10:07-0400Body mass index (BMI) [Ratio]32.74 kg/i8Tvxbros Flores HELICOPTER REPAIRER-HOME CARE ASSISTANT Work Phone: [facility]06-13-2024 10:070400Body zotmpt65.83 kgFátima Sanchezoll HELICOPTER REPAIRER-HOME CARE ASSISTANT Work Phone: [facility]06-13-2024 10:07-0400Diastolic blood nnoujdpn99 mm[Hg]Fátima Sanchezoll HELICOPTER REPAIRER-HOME CARE ASSISTANT Work Phone: [facility]06-13-2024 10:07-0400Heart rate 71 /minFátima Sanchezoll HELICOPTER REPAIRER-HOME CARE ASSISTANT Work Phone: [facility]06-13-2024 10:07-0400Systolic blood mm[Hg]Fátima Richmond HELICOPTER REPAIRER-HOME CARE ASSISTANT Work Phone: [facility] Encounters Encounter DateEncounter TypeCare ProviderFacilityStart: 04-21-2024 End: 22-01-4167btxksacujuZsjkzjjxiW[facility]oster [facility] Work Phone: Start: 04-21-2024 End: 51-73-3458Sownsgq encounter procedureFirharveys [facility] Work Phone: start: 02-06-2024 End: 56-07-9046eviehawwwoMLNZECPFormerly [facility] Start: 02-06-2024 End: 14-28-6033Fqjrkd outpatient new 30 minutesJedidiercheikh Natalee Richmond HELICOPTER REPAIRER-HOME CARE ASSISTANT Work Phone: [facility] SurgeryComment on above: Encounter for screening colonoscopy (Primary Dx); Abdominal crampsStart: 12-18-2023 End: 00-19-3384Unupewupo encounterEncompass Health Rehabilitation Hospital Of Yorkcheikh Flores HELICOPTER REPAIRER-HOME CARE ASSISTANT Work Phone: [facility] SurgeryStart: 10-12-2022 End: 12-98-9834pbumertqkwJH DOCTOR MISCFacility:C1Hkqkb: 12-19-2018 End: 71-08-7477Fumuqep encounter procedureTARIBradford Gama [facility] Procedures DateProcedureProcedure DetailPerforming ClinicianStart: 78-23-0371TOQNL WEIGHTS TARIF KANAANStart: 63-55-1049QYXCBP AND OUTPUTTARIF KANAANStart: 86-03-8099BYSG NPO, SPECIFIED TIMETARIF KANAANStart: 76-84-5049Wvg routine ecg w/least 12 lds w/i&rTARIF KANAANStart: 77-72-8642LCKQMTCLSRCH KANAANStart: 19-71-5531JBTF CODE TARIF KANAANStart: 54-66-2456JOMWFWKH OXYGEN THERAPY PROTOCOLTARIF KANAANStart: 81-69-0034LGDNAU AND OUTPUTTARIF KANAANStart: 99-63-5904JF CONSULT TO SOCIAL WORKTARIF KANAANStart: 07-91-0578TEBRV/VASCULAR CHECKSTARIF KANAANStart: 29-10-9412IFMLQXA COMMUNICATIONTARIF RENENStart: 98-28-5515WGITHKER SITE CARE TARIF KANAANStart: 66-41-6551ALRVMGZKB MONITORINGTARIF KANAICHANStart: 12-19-2018 TOBACCO CESSATION EDUCATIONTARIF rt: 77-72-6062HLPBR SIGNSTARI SHANEL Start: 62-11-9314EKII LAB REPORTTARIF rt: 97-09-4598LRVBOMIHG PATIENT TARIF rt: 19-02-6267TXWFYCDVW CLOTTING TIMETARIF rt: 12-19-2018R & l hrt cath w/njx l ventriculog img s&iTARIF tart: 47-30-8492Psslj count platelet automatedTARIF rt: 04-08-9525Dlaph count hemoglobinTARIF rt: 61-98-0561Nxmslbhu other sourceTARIF rt: 18-28-5984UVQUEIZUAC W/GFR POINT OF CARETARIF rt: 31-88-7764Hgxt bld gluc mntr dev cleared fda spec home useTARIF rt: 54-66-0382Cxhnvubbd serum plasma/whole bloodTARIF rt: 11-19-4879Ktyjvr serum plasma or whole bloodTARIF rt: 67-38-2026KVDOMGGA OXYGEN THERAPY PROTOCOLTARIF rt: 39-37-6568BUN CHEMISTRY (NA,K,ICA,GLU,CALC HCT/HGB,LACTATE,CREA,CL) TAR rt: 31-40-6119TAPAXJ INFORMED CONSENTTARIF [facility] Plan of Treatment DateCare ActivityDetailAuthorStart: 31-63-2421Nndxq BMI ScreeningAdult BMI ScreeningUniversity Hospitals Health System SystemStart: 06-27-3123Gbbuqor ScreeningTobacco ScreeningProSelect Medical [facility] SystemStart: 78-62-0111Rsnzjppre vaccinationInfluenza VaccineUniversity Hospitals Health System SystemStart: 03-09-2024 End: 21-61-9905Ykpuqxblf to same day surgery wpdqfz0303/09/2024 7:30 AM EDT - 03/09/2024 8:00 AM EDT Surgery [facility] - Surgery [address] [place] [address] Michael Singh, DO [address] [place] [address] COLONOSCOPY DIAGNOSTIC / SCREENING [46550 (CPT )][facility] PrebleComment on above:COLONOSCOPY DIAGNOSTIC / SCREENING [92111 (CPT )]Start: 03-09-2024 End: 04-34-1224Dfcunbcnbxl flx dx w/collj spec when pfrmdCOLONOSCOPY DIAGNOSTIC / SCREENING Screen for colon cancer 03/09/2024 7:30 AM EDTFREMONT SURGERYStart: 31-25-9700Gksklcegoi hospital visit by grqiazklw18/15/2024 7:30 AM EDT Hospital Encounter [facility] [address] [place] [address] Michael Singh, DO [address] [place] [address] [facility] SurgeryStart: 03-03-2024 End: 86-79-8544hcdctdfucj44/09/2024 4:10 PM EDT Support Visit [facility] Admit [address] [place] [address] [facility] AdmitStart: 17-42-5292Vandkdvyoqwvwg of varicella zoster vaccineZoster (Shingles) Vaccine (1 of 2)[facility] SystemStart: 71-61-5495QMrV,Tdap and Td Vaccines (1 - Tdap)DTaP,Tdap and Td Vaccines (1 - Tdap)[facility] SystemStart: 95-03-0007Uhkqn BMI Follow Up PlanAdult BMI Follow Up PlanProSelect [facility] SystemStart: 73-67-6310Ohannuyqlg ScreeningDepression ScreeningProSelect [facility] System End: 88-32-3291MppxypfuzgvYphypclaucb GI Routine Encounter for screening colonoscopy 1 Occurrences starting 02/06/2024 until 02/05/2025[facility] Work Phone: Comment on above:1 Occurrences starting 02/06/2024 until 02/05/2025 Immunizations Immunization DateImmunizationNotesCare LocofhfdAiyifwgq82-21-2781ggmgsxfeb virus vaccine, unspecified formulationFátima MEDINA Work Phone: [facility] Payers DatePayer CategoryPayerPolicy [id number] BCBS OUT OF STATE PPO/TRUST [id number] 2021-Present [phone] [address] [place] [id number] [id number] 2009MedicareMEDICARE MEDICARE PART A & B [id number] 2008-Present [phone] [address] [place] [address] [id number] [id number] 1960Unknown [id number] Social History DateTypeDetailFacilityStart: 02-06-2024 End: 12-65-4842Fowtcfk smoking status NHISNever smoked tobacco (finding) [facility] Springfieldtart: 02-33-9444Plp Assigned At BirthSouthwest General Health CenterTobacc smoking status NHISTobacco smoking consumption unknownProSelect [facility] SystemStart: 02-04-2019 End: 21-58-4888Abqnwmp of Social functionProSelect [facility] SystemStart: 02-04-2019 End: 56-95-6999GmmrjmdqzOgbMygfmj Health SystemChildcareUnknownPVidant Pungo Hospitaltart: 88-25-8763Qag assigned at birthNot on fileBarberton Citizens Hospital Start: 79-87-9274Gwcyarw use and exposureSmokeless tobacco non-userFormerly [facility] Southtart: 10-91-1299Qprccplie beverage intakeEx-drinker (finding) [facility]htart: 59-12-9297Shksgai CommentrarelyPVidant Pungo Hospitaltart: 00-35-6638Kszqft identityIdentifies as male gender (finding) [facility]htart: 40-88-8248Nltcww orientationHomosexual (finding) [facility] History of Present illness Narrative 02-06-2024 Note Date & YebjAvhjFxocpbak39-91-0308 History of Present illness Narrative* Fátima Natalee Flores, HELICOPTER REPAIRER-HOME CARE ASSISTANT - 02/06/2024 10:00 AM EDT Chief Complaint: Screening colonoscopy History of Present Illness Grant Orozco II is a 58 y.o. male who presents to the office for colon cancer screening. He states his last colonoscopy was 10+ years ago with Dr. Mendieta. He denies any concerns or changes in hisbowels including diarrhea, constipation, rectal bleeding. He does report lower abdominal cramps that resolve after he has a bowel movement. He states he drinks an increased amount of water daily. He admits that he could probably get more fiber in his diet. He has a history of CHF. He has a pacemaker in place. He also has cardiac stents which were placed 20 years ago. He is on aspirin and plavix daily. Review of Systems Constitutional: Negative for fever and unexpected weight change. HENT: Negative for trouble swallowing. Respiratory: Negative for shortness of breath. Cardiovascular: Negative for chest pain. Gastrointestinal: Negative for nausea, vomiting, abdominal pain, diarrhea, constipation, blood in stool and black tarry stool. Lower abdominal cramps relieved after bowel movements Genitourinary: Negative for dysuria and difficulty urinating. Musculoskeletal: Negative for gait problem. Skin: Negative for rash and wound. Neurological: Negative for dizziness, weakness and light-headedness. Hematological: Does not bruise/bleed easily. Psychiatric/Behavioral: Negative for confusion. Past Medical History: Diagnosis Date CHF (congestive heart failure) ([facility]) 2006 Diabetes mellitus ([facility]) Eczema HL (hearing loss) Hypertension Shingles 08/2023 Varicella Visual impairment Past Surgical History: Procedure Laterality Date ADENOIDECTOMY CARDIAC CATHETERIZATION CARDIAC SURGERY Stints COLONOSCOPY TONSILLECTOMY No Known Allergies Current Outpatient Medications: allopurinoL (ZYLOPRIM) 300 mg tablet, Take 1 tablet (300 mg total) by mouth in the morning and 1 tablet (300 mg total) before bedtime., Disp: , Rfl: amLODIPine (NORVASC) 5 mg tablet, Take 1 tablet (5 mg total) by mouth nightly., Disp: , Rfl: aspirin 81 mg, Take 1 tablet (81 mg total) by mouth in the morning., Disp: , Rfl: carvediloL (COREG) 25 mg tablet, Take 1 tablet (25 mg total) by mouth in the morning and 1 tablet (25 mg total) in the evening. Take with meals., Disp: , Rfl: clopidogreL (PLAVIX) 75 mg tablet, Take 1 tablet (75 mg total) by mouth in the morning., Disp: , Rfl: colchicine (COLCRYS) 0.6 mg tablet, Take 1 tablet (0.6 mg total) by mouth. Take 1 tablet by mouth 2times daily, Disp: , Rfl: digoxin (LANOXIN) 125 mcg tablet, Take 1 tablet (125 mcg total) by mouth in the morning., Disp: , Rfl: ezetimibe (ZETIA) 10 mg tablet, Take 1 tablet (10 mg total) by mouth in the morning., Disp: , Rfl: FLUoxetine (PROzac) 20 mg capsule, Take 1 capsule (20 mg total) by mouth in the evening., Disp: , Rfl: gabapentin (NEURONTIN) 400 mg capsule, Take 1 capsule (400 mg total) by mouth in the morning and 1 capsule (400 mg total) at noon and 1 capsule (400 mg total) in the evening and 1 capsule (400 mg total) before bedtime., Disp: , Rfl: JARDIANCE 10 mg tablet tablet, Take 1 tablet (10 mg total) by mouth in the morning., Disp: , Rfl: lisinopriL (PRINIVIL,ZESTRIL) 20 mg tablet, Take 1 tablet (20 mg total) by mouth in the morning., Disp: , Rfl: metFORMIN (GLUCOPHAGE) 1000 mg tablet, Take 1 tablet (1,000 mg total) by mouth in the morning and 1tablet (1,000 mg total) in the evening. Take with meals., Disp: , Rfl: nitroglycerin (NITROSTAT) 0.4 MG SL tablet, Place 1 tablet (0.4 mg total) under the tongue every 5 (five) minutes as needed. Place 1 tablet under the tongue every 5 minutes as needed for Chest pain up to max of 3 total doses. If no relief after 1 dose, call 911., Disp: , Rfl: rosuvastatin (CRESTOR) 20 mg tablet, Take 1 tablet (20 mg total) by mouth nightly., Disp: , Rfl: tiZANidine (ZANAFLEX) 4 mg tablet, Take 1 tablet (4 mg total) by mouth nightly., Disp: , Rfl: sod sulf-pot chloride-mag sulf 1.479-0.188- 0.225 gram tablet, Please see instructional sheet givenby physicians office., Disp: 24 tablet, Rfl: 0 Social History Socioeconomic History Marital status: Spouse name: Not on file Number of children: Not on file Years of education: Not on file Highest education level: Not on file Occupational History Not on file Tobacco Use Smoking status: Never Smokeless tobacco: Never Vaping Use Vaping status: Never Used Substance and Sexual Activity Alcohol use: Not Currently Comment: rarely Drug use: Never Sexual activity: Yes Partners: Male Other Topics Concern Not on file Social History Narrative Not on file Social Determinants of Health Financial Resource Strain: Not on file Food Insecurity: Unknown (02/06/2024) Hunger Screening Food Insecurity - Worry: Never True Food Insecurity - Inability: Not on file Transportation Needs: Not on file Physical Activity: Not on file Stress: Not on file Social Connections: Not on file Interpersonal Safety: Not on file Housing Instability: Not on file Family History Problem Relation Age of Onset Arthritis Mother Clotting disorder Mother Hypertension Mother Diabetes Father Early Father Heart disease Father Objective Physical Exam Constitutional: General: He is not in acute distress. Appearance: Normal appearance. He is not ill-appearing. HENT: Head: Normocephalic and atraumatic. Mouth/Throat: Mouth: Mucous membranes are moist. Eyes: Pupils: Pupils are equal, round, and reactive to light. Cardiovascular: Rate and Rhythm: Normal rate. Pulmonary: Effort: Pulmonary effort is normal. No respiratory distress. Abdominal: General: There is no distension. Palpations: Abdomen is soft. Musculoskeletal: General: Normal range of motion. Skin: General: Skin is warm and dry. Neurological: Mental Status: He is alert and oriented to person, place, and time. Mental status is at baseline. Vital Signs: Blood pressure 151/85, pulse 71, height 160 cm (5' 3 ), weight 83.8 kg (184 lb 12.8 oz). Respiratory Source: No data recorded Admission Weight: Weight: 83.8 kg (184 lb 12.8 oz) Labs No results found for: WBC , HGB , HCT , MCV , PLT No results found for: GLU , CALCIUM , NA , K , CO2 , CL , BUN , CREATININE No results found for: AMYLASE No results found for: LIPASE No results found for: ALT , AST , GGT , ALKPHOS , LABBILI No results found for: INR , PROTIME Assessment Grant Orozco II is a 58 y.o.male who presents to the office for screening colonoscopy. Plan Colonoscopy with possible biopsy and/or polypectomy. Risks, benefits, and alternatives discussed with patient. Educated on bowel evacuation preparation. Patient verbalizes understanding and wishes toproceed. Hold aspirin and plavix 7 days prior. Encouraged 64 oz of water daily, 25-30 g of dietary fiber or fiber supplement OTC to help with bowel movements and abdominal cramps. Evaluation included: Preparing to see the patient (e.g., review of tests) Obtaining and/or reviewing separately obtained history Performing a medically appropriate examination and/or evaluation Counseling and educating the patient/family/caregiver Referring and communicating with other health care management specialist Encounter for screening colonoscopy [Z12.11] CAROL ALVARADO [facility] [place] This note was created with the assistance of a speech recognition program. While intending to generate a timely document that accurately reflects the content of the visit, no guarantee can be provided that every grammatical or spelling mistake has been or will be identified or corrected. Thank you for your understanding. CAROL Alvarado 02/06/24 1056 documented in this [facility] Note 12-18-2023 Note Date & [id number] Miscellaneous Notes* Telephone Encounter - Shantell Raymond - 12/18/2023 11:01 AM EDT Called Grant regarding the colonoscopy referral that our office received from Dr. De León, I lefta message on voicemail to call the office back to schedule an appointment. * Telephone Encounter - Shantell Raymond - 12/18/2023 11:01 AM EDT Called Grant regarding the referral that our office received, I left a message on voicemail to call the office back to schedule an appointment. * Telephone Encounter - Shantell Raymond - 12/18/2023 11:01 AM EDT Called Grant regarding the referral that our office received, I left a message on voicemail to call the office back to schedule an appointment. documented in this [facility] Telephone encounter Note 12-18-2023 Note Date & [id number] Telephone encounter Note* Telephone Encounter - Shantell Raymond - 12/18/2023 11:01 AM EDT Called Grant regarding the colonoscopy referral that our office received from Dr. De León, I lefta message on voicemail to call the office back to schedule an appointment. [facility] Telephone encounter Note 12-18-2023 Note Date & [id number] Telephone encounter Note* Telephone Encounter - Shantell Raymond - 12/18/2023 11:01 AM EDT Called Grant regarding the referral that our office received, I left a message on voicemail to call the office back to schedule an appointment. [facility] Telephone encounter Note 12-18-2023 Note Date & [id number] Telephone encounter Note* Telephone Encounter - Shantell Raymond - 12/18/2023 11:01 AM EDT Called Grant regarding the referral that our office received, I left a message on voicemail to call the office back to schedule an appointment. [facility] Evaluation note Note Date & TypeNoteFacilityEvaluation noteNo assessment information available [facility] Work Phone: Evaluation note Note Date & TypeNoteFacilityEvaluation note* Diagnosis Encounter for screening colonoscopy- Primary Abdominal cramps Abdominal pain, unspecified site Screen for colon cancer Special screening for malignant neoplasms, colon [facility] Date & TypeNoteFacilityInstructionsNot on filedocumented in this encounter [facility] Instructions Note Date & TypeNoteFacilityInstructionsNot on filedocumented in this encounter [facility] Summary Purpose Family History No Family History Records FoundNo Family History Records FoundNo Family History Records Found Advance Directives Advance Directive Response Recorded Date/ Time Advance Directives No April 08, 2024 12:32pm Chief Complaint and Reason for Visit Chief Complaint Cervicalgia Additional Source Comments (unrecognized sect ion and content) No Status Records FoundNo Status Records FoundNo Status Records Found INFORMATION SOURCE (unrecogn ized section and content) DATE CREATED AUTHOR 12/23/[address] [facility] DATE CREATED AUTHOR AUTHOR'S ORGANIZ ATION 11/13/2022 [facility] DATE CREATED AUTHOR AUTHOR'S ORGANIZ ATION 02/07/2024 [facility] Care Teams (unrecognized sec tion and content) Team Status: Active Member Role Status Dates Shelly Ward APRN Primary Care Provider Active Team Status: Inactive Member Role Status Dates Tianna Finnegan APRN Attending Provider Active Start: April 21, 2024 End: April 21, 2024ShirinShant Maldonado Care ProviderActiveStart: April 21, 2024 End: April 21, 2024Team MemberRelationshipSpecialtyStart DateEnd Date Swetha De León MD [address] [place] [address] PCP - GeneralFamily Medicine12/18/23Team MemberRelationshipSpecialtyStart DateEnd Date Swetha De León MD [address] [place] [address] [facility] - [facility] Goals (unrecognized section and content) Goals may be documented in a n alternate sectionNot on filedocumented as of this encounterNot on filedocumented as of this encounter Reason for Visit (unrecogniz ed section and content) ReasonCommentsColon Cancer ScreeningScreening colonoscopy, mild anemia, referred by Dr. De León FOR RECORDS PERTAINING TO PATIENTS WHO ARE [...] BE BASED ON THE PRIMARY CLINICAL RECORDS. [facility] [employer] [facility]. provides no warranty or guarantee of the accuracy or completeness of information in this document.
[2025-07-26 09:58] LABS: Alanine Aminotransferase 24 U/L (16-63); Albumin Globulin Ratio 1.1; Albumin Level 3.9 g/dL (3.4-5.0); Alkaline Phosphatase 100 U/L (46-116); Anion Gap 11.7; Aspartate Amino Transferase 20 U/L (15-37); Blood Urea Nitrogen 15.0 mg/dL (7.0-18.0); Calcium 9.5 mg/dL (8.5-10.1); Carbon Dioxide 30.5 mmol/L (21.0-32.0); Chloride 104 mmol/L (98-107); Cholesterol 108 mg/dL (<=200); Estimated GFR (African America >60 (>=60 mL/min/1.73m^2); Estimated GFR (Non-African Ame >60 (>=60 mL/min/1.73m^2); Globulin 3.7 g/dL; Glucose 110 mg/dL (74-106); HDL Cholesterol 32 mg/dL (40-60); Potassium 4.2 mmol/L (3.5-5.1); Sodium 142 mmol/L (136-145); Thyroid Stimulating Hormone 3.307 uIU/mL (0.358-3.740); Total Protein 7.6 g/dL (6.4-8.2); Triglycerides 91 mg/dL (<=150); VLDL CHOLESTEROL 18.2 mg/dL
== END 2025-07-26 08:37 | disposition home or self-care (01) ==
LOC: LAB 08:38
DX: I10 Essential (primary) hypertension (principal); Z13.29 Encounter for screening for other suspected endocrine disorder
CPT/HCPCS: 36415; 80053; 80061; 84439; 84443